=== PATIENT | female | born 1955 | race Asian ===

== ENCOUNTER 2024-07-01 05:25 | Emergency (ER) | payer MEDICARE, SELFPAY ==
[2024-07-01 05:31] VITALS: BP 165/102
[2024-07-01 06:48] LABS: Blood Urea Nitrogen 12 mg/dl (7-17); Calcium 9.9 mg/dl (8.4-10.2); Carbon Dioxide 20 mmol/L (22-30); Chloride 103 mmol/L (98-107); Glucose 304 mg/dl (70-99); Lipase 132 U/L (23-300); Sodium 135 mmol/L (135-145); eGFR > 60.00
[2024-07-01 07:04] VITALS: BP 163/105
[2024-07-01 07:10] LABS: % Basophils 0.6 % (0-2); % Eosinophils 0.7 % (0-6); % Immature Granulocytes 0.6 % (0-0.5); % Lymphocytes 13.5 % (20.5-51.1); % Monocytes 6.2 % (1.7-9.3); % Neutrophils 78.4 % (42.2-75.2); Absolute Basophils 0.1 10^3/uL (0-0.2); Absolute Eosinophils 0.1 10^3/uL (0-0.7); Absolute Immature Granulocytes 0.1 10^3/uL (0-0.05); Absolute Lymphocytes 1.7 10^3/uL (1.2-3.4); Absolute Monocytes 0.8 10^3/uL (0.1-0.6); Absolute Neutrophils 9.8 10^3/uL (1.4-6.5); Hemoglobin 11.3 g/dL (12.0-16.0); Mean Corp Hgb Conc. 33.2 g/dL (33.0-37.0); Mean Corpuscular Hgb 30.4 pg (27.0-31.0); Mean Corpuscular Volume 91.4 fL (81.0-99.0); Mean Platelet Volume 10.7 fL (7.4-10.4); Nucleated Red Blood Cells % 0 %; Platelet Count 301 10^3/uL (130-400); Red Blood Cell Count 3.72 10^6/uL (4.20-5.40); White Blood Cell Count 12.5 10^3/uL (4.8-10.8)
--- NOTE | 2024-07-01 07:20 | ED.GENMED ---
History of Present Illness
General
Chief Complaint: Abdominal Symptoms
Source: patient
Time Seen by Provider: 07/01/24 07:09
History of Present Illness
History of Present Illness:
68-year-old female with past medical history of hypertension, hyperlipidemia, lgi-pdbzrai-zjnjfkqoj diabetes, previous cerebral aneurysm presenting to the emergency department for 2 months of generalized abdominal discomfort, gradually worsening
during that time, more recently associated with nausea and vomiting, last night pain got worse and was associated with 1 episode of loose stool. Patient states that the diarrhea/loose stool has since resolved but she still notes generalized
abdominal pain. Patient was scheduled to undergo outpatient CT scan that was ordered by her primary care provider but states the pain felt too great for her to wait for that CAT scan today. Patient does note she recently traveled to [facility] over the
last 2 weeks and upon returning home felt the symptoms got worse. Symptoms seem to be aggravated by eating or drinking. She has taken some antacid medications intermittently with some relief of the pain. Currently the pain is described to be a
deep burning sensation within her abdomen. Denies any urinary symptoms. Patient states no known sick contacts or recent antibiotics.
Past History
Past History
ED Past Medical History: HTN, Hypercholesterolemia, NIDDM and Hypothyroidism
ED Past Surgical History: None
Social History
Tobacco: Non-smoker
Alcohol: None
Drug: None
Personal:
Living: with family
Review of Systems
Review of Systems
All Other Systems: ROS reviewed and negative except as documented in HPI and ROS
Phy Exam
Physical Exam
Physical Exam:
GENERAL: Alert , in no apparent distress
EYE: clear conjunctiva b/l
HEAD: NCAT
ENT: mmm.
CARDIAC: Regular rate and rhythm .
LUNGS: Clear breath sounds bilaterally, no acute respiratory distress, no wheezes/rales/rhonchi
ABDOMEN: Soft, without focal tenderness, no r/g, no cvat, negative Begum sign, no tenderness at McBurney's point
NEUROLOGICAL: Alert and oriented
SKIN: Warm and dry, skin intact.
MUSCULOSKELETAL: well perfused.
PSYCH: Normal and appropriate interaction.
Scores
Heart Failure Risk
Heart Failure Risk Score: Not Applicable
Heart Score for Chest Pain Patients
STEMI patient?: Not applicable
Withdrawal Assessment of Alcohol
Withdrawal Assessment Completed?: Not applicable
Course
Orders/Labs/Results
Orders:
Orders
07/01/24 06:08
IV Insert/Care/Rem.- Treatment PRN
07/01/24 06:10
Basic Metabolic Panel Urgent
Lipase Urgent
07/01/24 07:05
Complete Blood Count/With Diff Urgent
Comprehensive Metabolic Panel Urgent
07/01/24 07:19
CT Abd/pelvis W Iv Cont Urgent
Comment:
Reason For Exam: generalized abd pain, worse with eating
Famotidine [Pepcid] 20 mg IV NOW STA
Mag Hydrox/Al Hydrox/Simeth [Maalox] 30 ml Phenobarb/Hyoscy/Atropine/Scop [] 10 ml Viscous Lidocaine 2% [Xylocaine Viscous Cup] 10 ml PO NOW
07/01/24 07:29
Mag Hydrox/Al Hydrox/Simeth [Maalox] 30 ml .ROUTE .STK-MED ONE
Phenobarb/Hyoscy/Atropine/Scop [] 10 ml .ROUTE .STK-MED ONE
Viscous Lidocaine 2% [Xylocaine Viscous Cup] 15 ml .ROUTE .STK-MED ONE
Abnormal Lab Results
07/01/24 07/01/24
06:10 07:05
WBC 12.5 H 10^3/uL
(4.8-10.8)
RBC 3.72 L 10^6/uL
(4.20-5.40)
Hgb 11.3 L g/dL
(12.0-16.0)
Hct 34.0 L %
(37.0-47.0)
MPV 10.7 H fL
(7.4-10.4)
Abs Immat Gran (auto) 0.1 H 10^3/uL
(0-0.05)
Absolute Neuts (auto) 9.8 H 10^3/uL
(1.4-6.5)
Absolute Monos (auto) 0.8 H 10^3/uL
(0.1-0.6)
Immature Gran % 0.6 H %
(0-0.5)
Neutrophils % 78.4 H %
(42.2-75.2)
Lymphocytes % 13.5 L %
(20.5-51.1)
Carbon Dioxide 20 L mmol/L
(22-30)
Creatinine 0.5 L mg/dL 0.5 L mg/dL
(0.6-1.0) (0.6-1.0)
Glucose 304 H mg/dl 293 H mg/dl
(70-99) (70-99)
Alkaline Phosphatase 128 H U/L
(38-126)
07/01/24 07:05
07/01/24 07:05
Vital Signs
Initial and Last Documented VS:
Initial Vital Signs
Temp Pulse Resp BP Pulse Ox
98.3 F 98 26 165/102 97
07/01/24 05:31 07/01/24 05:31 07/01/24 05:31 07/01/24 05:31 07/01/24 05:31
Last Documented Vital Signs
Temp Pulse Resp BP Pulse Ox
98.3 F 83 16 160/90 97
07/01/24 05:31 07/01/24 09:55 07/01/24 09:55 07/01/24 09:55 07/01/24 09:55
MDM/Problems Addressed
Differential Diagnosis Includes:
GERD, gastritis, colitis, enteritis, diverticulitis, less concern for an acute surgical abdomen such as appendicitis or cholecystitis however given patient's symptoms do seem to be worse with eating or drinking biliary colic is still being
considered on differential
MDM/Problems Addressed:
68-year-old female presenting to the ER for evaluation of abdominal pain that has been ongoing for at least 2 months, more recently patient has had GI upset with nausea vomiting and last night had some diarrhea. Presently patient states pain is
only symptom that is bothering her. She was scheduled for an outpatient CT scan today. Will obtain labs and CT scan here. Will attempt symptomatic relief with Pepcid and GI cocktail. Disposition pending.
Chronic conditions affecting care: DM
*Radiology
Radiology exam reviewed: radiology read reviewed
*Pulse Oximetry
Patient hypoxic: no
*Critical Care Note
Total Time (30-74mins, 75-104mins- exclusive of procedures): Not Applicable
Comment
Comment:
On reevaluation prior to CT scan patient did note she had improved pain following medications given. CT currently pending
Patient Management
Discussion with other providers: PCP
Escalation/DeEscalation of care consider admission/obs:
Patient CT scan concerning for pancreatic body mass. Radiology recommending outpatient MRI for further evaluation. There is also circumferential wall thickening of the ileum. Infectious versus inflammatory response. I favor inflammatory given
presenting nature of symptoms. Given the significant findings for the pancreatic body mass I contacted patient's primary care provider and reviewed these findings with them. Primary care was able to order the MRI and advised the patient to contact
their office and they will help get them the appointment for the MRI moving forward. Patient was provided with a printout of the CT report. Information for GI was provided to follow-up with. Patient is otherwise stable for discharge home.
ED Attending Note
-
Portions of this chart may have been created with voice recognition software.� Occasional wrong word or��sound alike� substitutions may have occurred due to the inherent limitations of voice recognition software.
Discharge Plan
Departure
Patient Disposition: Home (Routine Discharge)
Date of Disposition: 07/01/24
Time of Disposition: 09:44
Patient with high blood pressure during this ER visit?: Yes
Discharge Problem:
Mass of pancreas, Hyperglycemia
Instructions: Nausea and vomiting in adults - ED discharge instructions
Prescriptions:
New
ondansetron 4 mg tablet,disintegrating
4 mg PO TIDPRN PRN (Reason: nausea/vomiting) Qty: 10 0RF
famotidine [Pepcid] 20 mg tablet
20 mg PO BID Qty: 10 0RF
No Action
atorvastatin 10 MG tablet
10 mg PO QPM
levothyroxine 100 MCG tablet
100 mcg PO DAILY AT 0700
metformin 500 mg Tablet
500 mg PO DAILY
calcium carbonate [Calcium 500] 500 mg calcium (1,250 mg) Tablet
500 mg PO DAILY
cholecalciferol (vitamin D3) [Vitamin D3] 25 mcg (1,000 unit) Tablet,Chewable
25 mcg PO DAILY
docusate sodium [Stool Softener] 100 mg Capsule
100 mg PO BID
Referrals:
Bettina Aleman CRNP [Family Provider] -
Tee Zuniga MD [Active] - (GI - Call for appointment)
Interventions
Interventions:
*Risk Screen - Suicide Last Done: 07/01/24 05:26
*General Assessment Last Done: 07/01/24 05:44
*Neglect/Abuse Screening Last Done: 07/01/24 05:26
*ED- Fall Risk Assessment Last Done: 07/01/24 05:44
*ED COVID-19 Vaccine History Last Done: 07/01/24 05:44
*Nursing Disposition Last Done: 07/01/24 09:55
GX-Iyklyk-Aczdnmfdpw Assessment Last Done: 07/01/24 05:44
Discharge Date and Time
Discharge Date/Time: 07/01/24 10:06
Print Language: MAORI
[2024-07-01 07:24] LABS: ALT (SGPT) 20 U/L (0-35); AST (SGOT) 22 U/L (14-36); Alkaline Phosphatase 128 U/L (38-126); Blood Urea Nitrogen 13 mg/dl (7-17); Carbon Dioxide 23 mmol/L (22-30); Chloride 104 mmol/L (98-107); Glucose 293 mg/dl (70-99); Potassium 4.9 mmol/L (3.5-5.1); Sodium 136 mmol/L (135-145); Total Bilirubin 0.7 mg/dl (0.2-1.3); Total Protein 8.2 g/dl (6.3-8.2); eGFR > 60.00
[2024-07-01] MEDS: MAALOX 50 PO (07:30)
[2024-07-01] MEDS: PEPCID 20 MG IV (07:30)
[2024-07-01 08:00] VITALS: BP 165/97
[2024-07-01 09:55] VITALS: BP 160/90
== END 2024-07-01 10:06 | disposition home or self-care (01) ==
LOC: EMR 05:25
PROVIDERS: Emergency Medicine; EMERGENCY PHYSICIAN Emergency Medicine; FAMILY PHYSICIAN Nurse Practitioner
DX: K86.9 Disease of pancreas, unspecified (principal); E11.65 Type 2 diabetes mellitus with hyperglycemia; I10 Essential (primary) hypertension; E78.00 Pure hypercholesterolemia, unspecified
CPT/HCPCS: 99285; 96374; 74177; 80048; 80053; 83690; 85025; Q9967

== ENCOUNTER 2024-10-14 11:52 | Emergency (ER) | payer MEDICARE, SELFPAY ==
[2024-10-14 11:56] VITALS: BP 135/88
[2024-10-14 11:57] LABS: Glucose - Point of Care 561 mg/dl (70-99)
[2024-10-14 12:15] LABS: % Basophils 0.6 % (0-2); % Eosinophils 1.1 % (0-6); % Immature Granulocytes 0.5 % (0-0.5); % Lymphocytes 19.7 % (20.5-51.1); % Monocytes 7.1 % (1.7-9.3); Absolute Basophils 0.1 10^3/uL (0-0.2); Absolute Eosinophils 0.1 10^3/uL (0-0.7); Absolute Lymphocytes 1.6 10^3/uL (1.2-3.4); Absolute Monocytes 0.6 10^3/uL (0.1-0.6); Absolute Neutrophils 5.7 10^3/uL (1.4-6.5); Hematocrit 34.3 % (37.0-47.0); Hemoglobin 11.2 g/dL (12.0-16.0); Mean Corp Hgb Conc. 32.7 g/dL (33.0-37.0); Mean Corpuscular Hgb 29.9 pg (27.0-31.0); Mean Corpuscular Volume 91.7 fL (81.0-99.0); Mean Platelet Volume 11.4 fL (7.4-10.4); Nucleated Red Blood Cells % 0 %; Platelet Count 235 10^3/uL (130-400); Red Blood Cell Count 3.74 10^6/uL (4.20-5.40); Red Cell Dist. Width 12.3 % (11.5-14.5)
[2024-10-14] MEDS: NSS 1000 IV ×2 (12:57→14:27)
[2024-10-14 13:11] LABS: Venous Blood Gas B.E. -1.3 mmol/L (-4 to +4); Venous Blood Gas HCO3 25.6 mmol/L (22-27); Venous Blood Gas O2 Sat % 88.9 %; Venous Blood Gas pCO2 52 mmHg (35-48); Venous Blood Gas pO2 56 mmHg (30-50)
[2024-10-14 13:13] LABS: ALT (SGPT) 16 U/L (0-35); AST (SGOT) 18 U/L (14-36); Albumin 4.7 g/dl (3.5-5.0); Alkaline Phosphatase 127 U/L (38-126); Blood Urea Nitrogen 12 mg/dl (7-17); Carbon Dioxide 24 mmol/L (22-30); Total Bilirubin 0.7 mg/dl (0.2-1.3); Total Protein 8.6 g/dl (6.3-8.2); eGFR > 60.00
[2024-10-14 13:14] VITALS: BP 117/98
[2024-10-14 13:16] LABS: Chloride 99 mmol/L (98-107); Glucose 632 mg/dl (70-99); Sodium 133 mmol/L (135-145)
--- NOTE | 2024-10-14 13:20 | ED.GENMED ---
History of Present Illness
General
Chief Complaint: Blood Sugar Problem
Source: patient and family
Exam Limitations: none
Time Seen by Provider: 10/14/24 12:31
Nursing documentation reviewed up to this point in time: agreed with
History of Present Illness
History of Present Illness:
68 yh/o F with h/o HTN, HLD, NIDDM
pancreatic CA with neuroendocrine mets
on lanreotide injections( had 2 previously, q month)
managed by kelly dunn
here with elevated BG at home
pt has noticed that she lost about 10 pounds the past 1-2 mo which is unusual; she feels she is eating normally
she doesn't usually check her BGs
was told that her medication lanreotide can cause hyperglycemia
pt says today she checked it and it was 53; she called her son who rechecked it for her an hour later and it read 'hi'
pt has not had polydipsia or polyuria, abd pain, vomiting, diarrhea, cold sypmtoms, fever, chest pain
she says she gets full easily but that has bee an ongoing symptom since her ca diagnosis 3 mo ago
Past History
Past History
ED Past Medical History: HTN, Hypercholesterolemia, NIDDM and Hypothyroidism
ED Past Surgical History: None
Social History
Tobacco: Non-smoker
Alcohol: None
Drug: None
Personal:
Living: with family
Review of Systems
Review of Systems
Allergies reviewed?: Yes
All Other Systems: Not applicable
Phy Exam
Physical Exam
Physical Exam:
GENERAL: Alert , in no apparent distress
EYE: pupils equal and reactive
NECK: Supple
ENT: o/p clr, mmm.
CARDIAC: Regular rate and rhythm .
LUNGS: Clear breath sounds bilaterally, no acute respiratory distress, no wheezes/rales/rhonchi
ABDOMEN: Soft, without focal tenderness, no r/g, no cvat, normal bowel sounds
NEUROLOGICAL: Alert and oriented, no focal neuro deficits
SKIN: Warm and dry, skin intact.
MUSCULOSKELETAL: No edema, well perfused. neg noe's sign
PSYCH: Normal and appropriate interaction.
Course
Orders/Labs/Results
Orders:
Orders
10/14/24 12:03
Complete Blood Count/With Diff Urgent
Comprehensive Metabolic Panel Urgent
10/14/24 12:31
0.9% Sodium Chloride 1000 ml [Nss] 1,000 ml IV BOLUS
10/14/24 12:56
BHB [B-Hydroxybutyrate] Urgent
Urinalysis Reflex To Culture Urgent
Date Specimen was Collected: 10/14/24
Time Specimen was Collected: 12:46
Venous Blood Gas Urgent
%Oxygen/Room Air: 21
10/14/24 13:17
0.9% Sodium Chloride 1000 ml [Nss] 1,000 ml IV BOLUS
Abnormal Lab Results
10/14/24 10/14/24 10/14/24
11:55 12:03 12:56
RBC 3.74 L 10^6/uL
(4.20-5.40)
Hgb 11.2 L g/dL
(12.0-16.0)
Hct 34.3 L %
(37.0-47.0)
MCHC 32.7 L g/dL
(33.0-37.0)
MPV 11.4 H fL
(7.4-10.4)
Lymphocytes % 19.7 L %
(20.5-51.1)
VBG pH 7.30 L
(7.32-7.43)
VBG pCO2 52 H mmHg
(35-48)
VBG pO2 56 H mmHg
(30-50)
Sodium 133 L mmol/L
(135-145)
Glucose 632 H* mg/dl
(70-99)
Alkaline Phosphatase 127 H U/L
(38-126)
Total Protein 8.6 H g/dl
(6.3-8.2)
Urine Glucose 4+ A
(Negative)
POC Glucose 561 H* mg/dl
(70-99)
10/14/24 12:03
10/14/24 12:03
Vital Signs
Initial and Last Documented VS:
Initial Vital Signs
Temp Pulse Resp BP Pulse Ox
36.7 C 81 16 135/88 98
10/14/24 11:56 10/14/24 11:56 10/14/24 11:56 10/14/24 11:56 10/14/24 11:56
Last Documented Vital Signs
Temp Pulse Resp BP Pulse Ox
36.7 C 81 16 135/88 98
10/14/24 11:56 10/14/24 11:56 10/14/24 11:56 10/14/24 11:56 10/14/24 13:21
*Pulse Oximetry
SaO2: 98
Oxygen Mode of Delivery: Room air
ED Attending Note
-
Portions of this chart may have been created with voice recognition software.� Occasional wrong word or��sound alike� substitutions may have occurred due to the inherent limitations of voice recognition software.
Discharge Plan
Departure
Prescriptions:
No Action
atorvastatin 10 MG tablet
10 mg PO QPM
levothyroxine 100 MCG tablet
100 mcg PO DAILY AT 0700
metformin 500 mg Tablet
500 mg PO DAILY
calcium carbonate [Calcium 500] 500 mg calcium (1,250 mg) Tablet
500 mg PO DAILY
cholecalciferol (vitamin D3) [Vitamin D3] 25 mcg (1,000 unit) Tablet,Chewable
25 mcg PO DAILY
docusate sodium [Stool Softener] 100 mg Capsule
100 mg PO BID
ondansetron 4 mg tablet,disintegrating
4 mg PO TIDPRN PRN (Reason: nausea/vomiting) Qty: 10 0RF
famotidine [Pepcid] 20 mg tablet
20 mg PO BID Qty: 10 0RF
Interventions
Interventions:
*Risk Screen - Suicide Last Done: 10/14/24 11:56
*General Assessment Last Done: 10/14/24 13:06
*Neglect/Abuse Screening Last Done: 10/14/24 11:56
ED- Neurological Assessment Last Done: 10/14/24 13:07
Discharge Date and Time
Print Language: KAZAKH
[2024-10-14 13:30] LABS: Urine Albumin Negative (Neg - Trace); Urine Bilirubin Negative (Negative); Urine Character Clear (Clear); Urine Color Yellow; Urine Glucose 4+ (Negative); Urine Ketone Negative (Negative); Urine Leukocyte Negative (Negative); Urine Nitrite Negative (Negative); Urine Occult Blood Negative (Negative); Urine Urobilinogen Negative (Neg - 1+)
[2024-10-14 13:31] LABS: Potassium 4.8 mmol/L (3.5-5.1)
[2024-10-14 13:45] LABS: B-Hydroxybutyrate 0.22 mmol/L (0.02-0.27)
[2024-10-14 14:00] VITALS: BP 139/91
[2024-10-14 15:43] LABS: Glucose - Point of Care 379 mg/dl (70-99)
[2024-10-14 16:00] VITALS: BP 155/87
[2024-10-14] MEDS: NOVOLIN R 2 UNITS SC (16:27)
== END 2024-10-14 17:41 | disposition home or self-care (01) ==
LOC: EMR 11:52
PROVIDERS: Physician Assistant; EMERGENCY PHYSICIAN Emergency Medicine; FAMILY PHYSICIAN Nurse Practitioner
DX: E11.65 Type 2 diabetes mellitus with hyperglycemia (principal); I10 Essential (primary) hypertension; E78.00 Pure hypercholesterolemia, unspecified; C25.9 Malignant neoplasm of pancreas, unspecified; C7B.8 Other secondary neuroendocrine tumors
CPT/HCPCS: 99284; 96360; 96361; 96372; 80053; 81003; 82010; 82805; 82962; 85025

== ENCOUNTER 2025-01-05 17:27 | Emergency (ER) | payer MEDICARE, SELFPAY ==
[2025-01-05 17:31] VITALS: BP 159/99
[2025-01-05] MEDS: TYLENOL 650 MG PO (19:03)
[2025-01-05 19:11] VITALS: BMI 29.3
[2025-01-05] MEDS: NSS 1000 IV (19:28)
--- NOTE | 2025-01-05 19:30 | ED.GENMED ---
History of Present Illness
<Tess Gaspar PA-C - Last Filed: 01/06/25 13:15>
General
Chief Complaint: Headache
Source: patient
Exam Limitations: none
Time Seen by Provider: 01/05/25 18:32
Nursing documentation reviewed up to this point in time: agreed with
History of Present Illness
History of Present Illness:
Patient is a 69-year-old female with history of hypertension, insulin-dependent diabetes, metastatic pancreatic cancer who presents to the emergency department for evaluation of right-sided headache. Patient states she has had an intermittent
headache on the right side for the past 3-4 weeks. Today�she was woken at 3 AM with similar headache however has been unable to manage symptoms well at home. She does feel that her vision has been somewhat blurry over the past few weeks to months.
No associated fever, chills, vomiting, diplopia. No dizziness or ataxia. No difficulties with speech or swallowing.
Patient has Tylenol at home with minimal improvement. She is not on any oral anticoagulation. No past history of migraines.
Patient does live at home with her son who is present at bedside and states that she has been acting at her baseline mental status.
Past History
<Tess Gaspar PA-C - Last Filed: 01/06/25 13:15>
Past History
ED Past Medical History: HTN, Hypercholesterolemia, NIDDM and Hypothyroidism
ED Past Surgical History: None
Social History
Tobacco: Non-smoker
Alcohol: None
Drug: None
Personal:
Living: with family
Review of Systems
<Tess Gaspar PA-C - Last Filed: 01/06/25 13:15>
Review of Systems
Allergies reviewed?: Yes
All Other Systems: ROS reviewed and negative except as documented in HPI and ROS
Phy Exam
<Tess Gaspar PA-C - Last Filed: 01/06/25 13:15>
Physical Exam
Physical Exam:
Vitals: Hypertensive, otherwise vital signs stable. Afebrile
General: Patient is in mild distress. Nontoxic
Skin: Warm and dry, no rashes or lesions
Head: Normocephalic, atraumatic. No tenderness to temporal arteries bilaterally.
Eyes: Sclera nonicteric. Pupils equal round and reactive to light bilaterally. EOMs intact. No nystagmus.
Throat: Protecting airway
Neck: Normal ROM, no cervical spine tenderness, no meningismus
Cardiac: Regular rate and rhythm, no murmurs.
Pulm: Normal respiratory effort, no wheezes, rales, rhonchi heard on exam
Abdomen: No abdominal tenderness.
Extremities: No evidence of cyanosis or edema. Strength 5/5 in bilateral upper and lower extremities.
Neuro: AAOx3. CN II-XII grossly intact. No facial droop or asymmetry. Sensation intact. Normal finger to nose.No focal neurologic deficits.
Psychiatric: Normal affect.
Course
<Tess Gaspar PA-C - Last Filed: 01/06/25 13:15>
Orders/Labs/Results
Orders:
Orders
01/05/25 18:46
CT Head W/o Iv Contrast Urgent
Comment:
Reason For Exam: Headache, hx metastatic CA
0.9% Sodium Chloride 1000 ml [Nss] 1,000 ml IV BOLUS
Acetaminophen [Tylenol] 650 mg PO NOW STA
01/05/25 19:03
COVID-19 Antigen Urgent
Source: Nasal Swab
CRP [C-Reactive Protein] Urgent
Complete Blood Count/With Diff Urgent
Comprehensive Metabolic Panel Urgent
ESR [Erythrocyte Sed Rate] Urgent
01/05/25 20:32
Ketorolac [Toradol] 15 mg IV NOW STA
01/05/25 21:12
Ketorolac [Toradol] 15 mg IM NOW STA
01/05/25 21:26
Ketorolac [Toradol] 15 mg IV NOW STA
01/05/25 22:01
Diphenhydramine [Benadryl] 25 mg IV NOW STA
Metoclopramide [Reglan] 10 mg IV NOW STA
01/05/25 22:58
Diphenhydramine [Benadryl] 25 mg IV NOW STA
Abnormal Lab Results
01/05/25
19:03
RBC 3.42 L 10^6/uL
(4.20-5.40)
Hgb 10.3 L g/dL
(12.0-16.0)
Hct 32.4 L %
(37.0-47.0)
MCHC 31.8 L g/dL
(33.0-37.0)
MPV 11.2 H fL
(7.4-10.4)
ESR 58 H mm/hour
(0-20)
Creatinine 0.5 L mg/dL
(0.6-1.0)
Glucose 124 H mg/dl
(70-99)
C-Reactive Protein 17.50 H mg/L
(0.0-10.00)
Total Protein 8.7 H g/dl
(6.3-8.2)
01/05/25 19:03
01/05/25 19:03
Vital Signs
Initial and Last Documented VS:
Initial Vital Signs
Temp Pulse Resp BP Pulse Ox
98.3 F 71 16 159/99 99
01/05/25 17:31 01/05/25 17:31 01/05/25 17:31 01/05/25 17:31 01/05/25 17:31
Last Documented Vital Signs
Temp Pulse Resp BP Pulse Ox
98.3 F 67 18 154/89 99
01/05/25 17:31 01/05/25 23:27 01/05/25 23:27 01/05/25 23:27 01/05/25 23:27
<Joan Toscano, DO - Last Filed: 01/05/25 23:01>
Orders/Labs/Results
Orders:
Orders
01/05/25 18:46
CT Head W/o Iv Contrast Urgent
Comment:
Reason For Exam: Headache, hx metastatic CA
0.9% Sodium Chloride 1000 ml [Nss] 1,000 ml IV BOLUS
Acetaminophen [Tylenol] 650 mg PO NOW STA
01/05/25 19:03
COVID-19 Antigen Urgent
Source: Nasal Swab
CRP [C-Reactive Protein] Urgent
Complete Blood Count/With Diff Urgent
Comprehensive Metabolic Panel Urgent
ESR [Erythrocyte Sed Rate] Urgent
01/05/25 20:32
Ketorolac [Toradol] 15 mg IV NOW STA
01/05/25 21:12
Ketorolac [Toradol] 15 mg IM NOW STA
01/05/25 21:26
Ketorolac [Toradol] 15 mg IV NOW STA
01/05/25 22:01
Diphenhydramine [Benadryl] 25 mg IV NOW STA
Metoclopramide [Reglan] 10 mg IV NOW STA
01/05/25 22:58
Diphenhydramine [Benadryl] 25 mg IV NOW STA
Abnormal Lab Results
01/05/25
19:03
RBC 3.42 L 10^6/uL
(4.20-5.40)
Hgb 10.3 L g/dL
(12.0-16.0)
Hct 32.4 L %
(37.0-47.0)
MCHC 31.8 L g/dL
(33.0-37.0)
MPV 11.2 H fL
(7.4-10.4)
ESR 58 H mm/hour
(0-20)
Creatinine 0.5 L mg/dL
(0.6-1.0)
Glucose 124 H mg/dl
(70-99)
C-Reactive Protein 17.50 H mg/L
(0.0-10.00)
Total Protein 8.7 H g/dl
(6.3-8.2)
01/05/25 19:03
01/05/25 19:03
Vital Signs
Initial and Last Documented VS:
Initial Vital Signs
Temp Pulse Resp BP Pulse Ox
98.3 F 71 16 159/99 99
01/05/25 17:31 01/05/25 17:31 01/05/25 17:31 01/05/25 17:31 01/05/25 17:31
Last Documented Vital Signs
Temp Pulse Resp BP Pulse Ox
98.3 F 67 18 154/89 99
01/05/25 17:31 01/05/25 23:27 01/05/25 23:27 01/05/25 23:27 01/05/25 23:27
<Tess Gaspar PA-C - Last Filed: 01/06/25 13:15>
MDM/Problems Addressed
Differential Diagnosis Includes:
Not limited to: acute dehydration, viral illness, migraine headache, tension headache, metastatic disease, giant cell arteritis, etc
MDM/Problems Addressed:
69 year-old female presenting with a few weeks of intermittent right sided headache not responding to OTC treatments this morning. She has reports of mild blurred vision, however unclear if this has been present prior to onset of headache. No other
neurologic symptoms including AMS, viral symptoms. No history of recent trauma. 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
She and her son say that she was worked up for a intracerebral aneurysm w/ neurology at [facility] which was negative.
Vitals and physical exam as above.
Patient in mild distress due to headache however nontoxic appearing. No evidence of head or neck trauma without any focal neurological deficits. She does not have any focal tenderness over temporal arteries or symptoms of jaw claudication. She is
moving all extremities and has fluid speech. No sensory deficits.
Differential broad as above.
ED plan: will check labs, viral studies, inflammatory markers, given age and associated visual complaints. Will check CT head for further evaluation. Will give dose of Tylenol prior to CT scan.
Update: CT scan without any acute findings. Lab work relatively unremarkable. However � inflammatory markers, including ESR and CRP were both somewhat elevated however, lengthy discussion w/ patient and son who states this is chronic for patient and
her inflammatory markers are always elevated.
On reassessment � patient has had very minimal improvement following dose of Toradol after CT scan. Will give Benadryl/Reglan and reassess.
Update: Fortunately � patients headache has dissipated completely after Benadryl/reglan however, she did have significant level of agitation with Reglan and was given an additional dose of Benadryl with improvement.
Work up in ED unremarkable other than elevation in inflammatory markers, which was discussed. Unclear etiology of patients headache today however she did have response to migraine cocktail. Do not suspect infectious process. Do not suspect vascular
emergency or giant cell arteritis. Given improvement in symptoms without any neuro deficits - feel patient is stable for discharge home however given known history of malignancy � recommended f/u with oncology/neurology for possible MRI. Discussed
with patient/son who are comfortable with plan. Patient seen with attending physician.
Chronic conditions affecting care:
Pancreatic CA
Acute Exacerbation and/or Progression of Chronic Illness:
N/A
<Tess Gaspar PA-C - Last Filed: 01/06/25 13:15>
*Radiology
Radiology exam reviewed: radiology read reviewed
*Pulse Oximetry
SaO2: 99
Oxygen Mode of Delivery: Room air
Patient hypoxic: no
*EKG
Interpreted by ED Provider?: NA
*Construction Engineering Manager Interpretation
Rate: Construction Engineering Manager- N/A
*Critical Care Note
Total Time (30-74mins, 75-104mins- exclusive of procedures): Not Applicable
ED Attending Note
<Tess Gaspar PA-C - Last Filed: 01/06/25 13:15>
-
Portions of this chart may have been created with voice recognition software.� Occasional wrong word or��sound alike� substitutions may have occurred due to the inherent limitations of voice recognition software.
<Joan Toscano DO - Last Filed: 01/05/25 23:01>
ED Attending Note
Patient seen and examined by attending physician: Yes
I performed the substantive portion of visit, reviewed & personally made and approve the management plan that is documented in note by myself or ALEYDA.: Yes
I performed a history and physical exam of patient and discussed management with resident, I reviewed resident's note and agree with documented findings and plan of care.: Yes
ED Attending Note:
69-year-old female brought to the ER by her son for evaluation of right-sided headache which has been happening intermittently over the last 3 weeks. Patient denies any specific change in vision associated with the headaches, she does however
sometimes occasionally experience blurred vision. No fevers or chills. She is currently on hormonal treatment for a neuroendocrine pancreatic tumor-she has received several infusions of that medication, most recently in the beginning of December.
No fevers. No weakness to her arms or legs, she sometimes has paresthesias to her feet. Vital signs reviewed, patient is awake, alert, appears restless (had just received Reglan prior to my assessment), no photophobia, no dysdiadochokinesia, no
ataxia, no pronator drift, no midline pain on palpation of cervical spine, moving neck easily in all directions without apparent limitation, GCS is 15. I reviewed all test results with patient and son present at bedside. I discussed with them
nonspecific elevation of inflammatory markers, son is quick to report that her sed rate is always in the 50s, this was not surprising to him. I discussed with him possible etiology of symptoms related to temporal arteritis versus muscle
spasm/greater occipital neuritis, a nonspecific headache. I discussed with him very reassuring CT of the head. I discussed with them likely mild akathisia from Reglan administration-Will give additional dose of Benadryl. Of note patient had
complete symptomatic relief of her headache throughout treatment in the emergency department. We discussed plan for discharge home and close outpatient follow-up with primary care physician. Patient has seen neurology in the past as she had an
abnormal MRI previously that had been initially identified as an aneurysm but was later identified as a normal venous formation. Patient and son agree with plan to follow-up with PCP and will contact neurology as needed. They had no additional
questions at the current time.
Discharge Plan
Departure
Patient Disposition: Home (Routine Discharge)
Date of Disposition: 01/05/25
Time of Disposition: 23:16
Patient with high blood pressure during this ER visit?: Yes
Condition: Good
Covid-19: Negative COVID-19
Discharge Problem:
Headache
Instructions: Headache, Adult (DC), BLOOD PRESSURE
Prescriptions:
No Action
atorvastatin 10 MG tablet
10 mg PO QPM
levothyroxine 100 MCG tablet
100 mcg PO SUMOTUWETHFR
metformin 500 mg Tablet
500 mg PO BID
cyanocobalamin (vitamin B-12) 1,000 mcg Tablet
1,000 mcg PO DAILY
losartan 25 mg Tablet
25 mg PO DAILY
famotidine [Pepcid] 20 mg tablet
20 mg PO DAILYPRN PRN (Reason: gerd)
levothyroxine [Synthroid] 50 mcg Tablet
50 mcg PO SA
Referrals:
Kimberlyn Hunt MD [Non-Admitting Privileges, Neurology]
UNKNOWN - PT DOES,NOT KNOW [Family Provider]
Activity Restrictions/Additional Instructions:
RETURN TO THE EMERGENCY DEPARTMENT SEVERE HEADACHE, NECK PAIN, FEVER OR CHILLS, CHANGES IN VISION, DIZZINESS, DIFFICULTIES WITH WALKING OR SPEECH, ANY CHANGES IN MENTAL STATUS, WORSENING IN CURRENT SYMPTOMS, OR ANY OTHER CONCERNS
- As discussed�your inflammatory markers were elevated in the emergency department. Your CT of your head showed no acute findings.
-We are unsure the exact etiology of your headache today. Please continue to follow-up with your primary care and oncologist for further management. I have provided the name for a neurologist above as well.
- Please stay well-hydrated. Take Tylenol and/or Motrin as needed for pain.
Monitor your symptoms closely and return to the emergency department with any acute worsening/new symptoms or any other concerns
Interventions
Interventions:
*Risk Screen - Suicide Last Done: 01/05/25 17:32
*General Assessment Last Done: 01/05/25 19:11
*Neglect/Abuse Screening Last Done: 01/05/25 17:32
*ED- Fall Risk Assessment Last Done: 01/05/25 19:11
*ED COVID-19 Vaccine History Last Done: 01/05/25 19:11
*Nursing Disposition Last Done: 01/05/25 23:28
ED- Neurological Assessment Last Done: 01/05/25 20:47
Discharge Date and Time
Discharge Date/Time: 01/05/25 23:28
Print Language: SOUTH SUDANESE
[2025-01-05 19:32] LABS: Hematocrit 32.4 % (37.0-47.0); Hemoglobin 10.3 g/dL (12.0-16.0); Mean Corp Hgb Conc. 31.8 g/dL (33.0-37.0); Mean Corpuscular Volume 94.7 fL (81.0-99.0); Nucleated Red Blood Cells % 0 %; Platelet Count 239 10^3/uL (130-400); Red Cell Dist. Width 12.6 % (11.5-14.5)
[2025-01-05 19:35] LABS: COVID-19 Antigen Negative (Negative)
[2025-01-05 19:47] LABS: ALT (SGPT) 15 U/L (0-35); AST (SGOT) 22 U/L (14-36); Albumin 4.6 g/dl (3.5-5.0); Alkaline Phosphatase 114 U/L (38-126); Blood Urea Nitrogen 10 mg/dl (7-17); Calcium 10.1 mg/dl (8.4-10.2); Carbon Dioxide 24 mmol/L (22-30); Chloride 104 mmol/L (98-107); Estimated Creatinine Clearance 91 ml/min; Glucose 124 mg/dl (70-99); Potassium 4.6 mmol/L (3.5-5.1); Sodium 136 mmol/L (135-145); Total Protein 8.7 g/dl (6.3-8.2); eGFR > 60.00
[2025-01-05 19:50] LABS: C-Reactive Protein 17.50 mg/L (0.0-10.00)
[2025-01-05] MEDS: TORADOL 15 MG IV (21:26)
[2025-01-05] MEDS: BENADRYL 25 MG IV ×2 (22:06→23:05)
[2025-01-05] MEDS: REGLAN 10 MG IV (22:07)
[2025-01-05 23:27] VITALS: BP 154/89
== END 2025-01-05 23:28 | disposition home or self-care (01) ==
LOC: EMR 17:27
PROVIDERS: Physician Assistant; EMERGENCY PHYSICIAN Emergency Medicine
DX: R51.9 Headache, unspecified (principal); C7A.8 Other malignant neuroendocrine tumors; E11.9 Type 2 diabetes mellitus without complications; I10 Essential (primary) hypertension; E78.00 Pure hypercholesterolemia, unspecified; E03.9 Hypothyroidism, unspecified; Z79.890 Hormone replacement therapy; Z79.84 Long term (current) use of oral hypoglycemic drugs
CPT/HCPCS: 99284; 96374; 96375 ×2; 96376; 96361; 70450; 80053; 85025; 85652; 86140; 87811

== ENCOUNTER 2025-03-24 19:06 | Emergency (ER) | payer MEDICARE, SELFPAY ==
[2025-03-24 19:13] VITALS: BP 166/104
[2025-03-24 19:29] LABS: Hematocrit 32.3 % (37.0-47.0); Hemoglobin 10.0 g/dL (12.0-16.0); Mean Corp Hgb Conc. 31.0 g/dL (33.0-37.0); Mean Corpuscular Volume 95.0 fL (81.0-99.0); Nucleated Red Blood Cells % 0 %; Platelet Count 321 10^3/uL (130-400); Red Cell Dist. Width 11.9 % (11.5-14.5)
[2025-03-24 19:51] LABS: ALT (SGPT) 13 U/L (0-35); AST (SGOT) 46 U/L (14-36); Albumin 4.5 g/dl (3.5-5.0); Alkaline Phosphatase 370 U/L (38-126); Blood Urea Nitrogen 7 mg/dl (7-17); Calcium 9.6 mg/dl (8.4-10.2); Carbon Dioxide 28 mmol/L (22-30); Chloride 102 mmol/L (98-107); Glucose 112 mg/dl (70-99); Potassium 4.4 mmol/L (3.5-5.1); Sodium 136 mmol/L (135-145); Total Protein 8.9 g/dl (6.3-8.2); eGFR > 60.00
[2025-03-24 21:03] VITALS: BP 155/96
--- NOTE | 2025-03-24 21:46 | ED.CVA ---
History of Present Illness
General
Chief Complaint: CVA/TIA Symptoms
Source: patient, records and family
Exam Limitations: none
Time Seen by Provider: 03/24/25 21:32
Nursing documentation reviewed up to this point in time: agreed with except (No history of aneurysm)
Onset of Stroke Symptoms
Onset of symptoms known: No
Time pt last seen normal is known: No
History of Present Illness
History of Present Illness:
69-year-old female with a past medical history of hypertension and hyperlipidemia, diabetes, pancreatic cancer who presents to the emergency room with her son for evaluation of a headache. Patient reports that symptoms started at around 2 AM this
morning and have been constant since that time. She reports a right sided headache that does not radiate. She says that she feels subjectively like she is having some slurred speech or difficulty getting words out although son says that she has
not noticed any change in her speech. She denies feeling slurring of the speech. She denies any change in her vision. She denies any neck pain or stiffness. She denies any focal weakness or numbness in extremities. She does have history of
pancreatic cancer and is on hormonal therapy for this. She does report similar headache in December that resolved after ER treatment. Triage note mentions a history of aneurysm�after discussion with patient and son it sounds like she had initial
imaging where there was a question of aneurysm but after further workup and specialist evaluation they were told that if this was a normal venous formation.
Past History
Past History
ED Past Medical History: HTN, Hypercholesterolemia, NIDDM and Hypothyroidism
ED Past Surgical History: None
Social History
Tobacco: Non-smoker
Alcohol: None
Drug: None
Personal:
Living: with family
Review of Systems
Review of Systems
All Other Systems: ROS reviewed and negative except as documented in HPI and ROS
Constitutional: Denies fever or chills
Respiratory: Denies trouble breathing
Cardiac: Denies chest pain
ABD/GI: Denies abdominal pain, nausea or vomiting
: Denies flank pain
Musculoskeletal: Denies neck pain or back pain
Neurological: Reports headache; Denies dizzy, weakness or numbness
Phy Exam
Physical Exam
Physical Exam:
General: Awake, alert, oriented x3; no acute distress
Head: Normocephalic, atraumatic
Eyes: Conjunctiva normal, EOMI, pupils equal round reactive to light bilateral
Throat: Airway intact, handling secretions
Neck: Trachea midline, supple without meningismus, good free range of motion without pain
Lungs: Clear to auscultation bilaterally, no wheezing, rales, rhonchi
Heart: Regular rate and rhythm, no murmurs, gallops, or rubs appreciated
Abd: Soft, non distended, nontender
Neuro: Cranial nerves intact 2 through 12, speech is fluid without dysarthria or aphasia objectively, motor and sensory intact proximally and distally in the upper and lower extremities, no limb ataxia
Skin: Warm and dry
Extremities: Warm and well-perfused with no edema
Scores
NIH Stroke Score
Level of Consciousness: 0 - Alert
LOC Questions: 0-Answers both correctly
LOC Commands: 0-Performs both correctly
Best Horizontal Gaze: 0-Normal
Visual Munoz: 0=Normal, no visual loss
Facial Palsy: 0=Normal, symmetrical
Motor - Right Arm: 0=No drift 10 seconds
Motor - Left Arm: 0=No drift 10 seconds
Motor - Right Le-No drift 5 seconds
Motor - Left Le-No drift 5 seconds
Limb Ataxia: 0-Absent
Sensation: 0-Normal
Best Language: 0-No aphasia
Dysarthria: 0-Normal
Extinction and Inattention: 0-No abnormality
NIH Total Score:: 0
Course
Orders/Labs/Results
Orders:
Orders
03/24/25 19:[address] [CT Head W/o Iv Contrast] Urgent
Comment:
Reason For Exam: right headache, speech difficulty
03/24/25 19:22
Complete Blood Count/With Diff Urgent
Comprehensive Metabolic Panel Urgent
03/24/25 21:43
Diphenhydramine [Benadryl] 25 mg IV NOW STA
Ketorolac [Toradol] 15 mg IV NOW STA
Metoclopramide [Reglan] 10 mg IV NOW STA
03/24/25 21:44
0.9% Sodium Chloride 500 ml [Nss] 500 ml IV BOLUS
03/24/25 22:08
Electrocardiogram (*1) Urgent
Reason for Study: TIA/Stroke
EKG- Treatment ONCE
Abnormal Lab Results
03/24/25
19:22
RBC 3.40 L 10^6/uL
(4.20-5.40)
Hgb 10.0 L g/dL
(12.0-16.0)
Hct 32.3 L %
(37.0-47.0)
MCHC 31.0 L g/dL
(33.0-37.0)
Abs Immat Gran (auto) 0.1 H 10^3/uL
(0-0.05)
Absolute Neuts (auto) 7.4 H 10^3/uL
(1.4-6.5)
Absolute Monos (auto) 0.8 H 10^3/uL
(0.1-0.6)
Immature Gran % 0.6 H %
(0-0.5)
Lymphocytes % 18.5 L %
(20.5-51.1)
Glucose 112 H mg/dl
(70-99)
AST 46 H U/L
(14-36)
Alkaline Phosphatase 370 H U/L
(38-126)
Total Protein 8.9 H g/dl
(6.3-8.2)
03/24/25 19:22
03/24/25 19:22
Vital Signs
Initial and Last Documented VS:
Initial Vital Signs
Temp Pulse Resp BP Pulse Ox
36.3 C 78 16 166/104 97
03/24/25 19:13 03/24/25 19:13 03/24/25 19:13 03/24/25 19:13 03/24/25 19:13
Last Documented Vital Signs
Temp Pulse Resp BP Pulse Ox
36.3 C 79 22 135/103 94
03/24/25 19:13 03/24/25 23:00 03/24/25 23:00 03/24/25 22:00 03/24/25 22:30
MDM/Problems Addressed
Differential Diagnosis Includes:
Tension headache, migraine headache, brain mass, brain bleed, CVT, temporal arteritis
MDM/Problems Addressed:
69-year-old female with history as noted presents for evaluation of right sided headache similar to an episode in December. Hypertensive but otherwise normal vitals. Physical exam as above. Patient reports some subjective slowed speech but son
denies any objective change in her speech and certainly today on exam she is not dysarthric or aphasia, neuroexam otherwise is reassuring�nothing to suggest that this is an acute CVA. She had lab work in triage including a CBC which shows stable
anemia. Chemistry no clinically significant abnormalities. CT head shows no acute abnormalities. Patient and son report similar episode in December that improved with medications in the ER�wi trial Toradol, Reglan/Benadryl, fluids and
reassess. No meningeal signs or fever to suggest that this is meningitis; triage note erroneously mentions history of aneurysm but on clarification this was an incidental finding that was further evaluated and aneurysm ruled out per patient and
son. Would hold off on lumbar puncture at this point in time. Low suspicion for emergent cause for headache based on full clinical picture at this point.
Clinical reassessment after Toradol, Reglan/Benadryl patient's headache resolved she says she is feeling much better. She remains with reassuring neurologic exam, vital signs essentially normalized at this point low suspicion for emergent pathology
I think she is stable for discharge. I did speak to her and her son at length she feels comfortable with this plan. I did speak to them about following up with a neurologist given that this is her second ER visit with headache and they were in
agreement. Regarding her speech�objectively it is normal she feels it is improved and I spoke to her son in private he says that she actually has noted some slowed speech chronically�there is a family history of Parkinson's and he is concerned and
wants to talk to her neurologist about the potential for this and I encouraged him to ensure follow-up with neurology.
Chronic conditions affecting care:
Pancreatic cancer
Acute Exacerbation and/or Progression of Chronic Illness:
Acutely hypertensive
Acute Exacerbation and/or Progression of Chronic Illness: HTN
*Pulse Oximetry
SaO2: 96
Oxygen Mode of Delivery: Room air
Patient hypoxic: no (96%)
*Critical Care Note
Total Time (30-74mins, 75-104mins- exclusive of procedures): Not Applicable
Data Reviewed
Review of Other/Old Records Reveals: Labs, Records and Radiology Studies
Source: patient, records and family
Further Testing Considered But Not Given:
Considered CT angiogram, considered lumbar puncture
Patient Management
Escalation/DeEscalation of care consider admission/obs:
Considered admission�symptoms improved, stable for discharge
ED Attending Note
-
Portions of this chart may have been created with voice recognition software.� Occasional wrong word or��sound alike� substitutions may have occurred due to the inherent limitations of voice recognition software.
Discharge Plan
Departure
Patient Disposition: Home (Routine Discharge)
Date of Disposition: 03/24/25
Time of Disposition: 23:00
Patient with high blood pressure during this ER visit?: Yes
Discharge Problem:
Headache
Instructions: Headache in adults - ED (DC)
Prescriptions:
No Action
atorvastatin 10 MG tablet
10 mg PO QPM
levothyroxine 100 MCG tablet
100 mcg PO SUMOTUWETHFR
metformin 500 mg Tablet
500 mg PO BID
cyanocobalamin (vitamin B-12) 1,000 mcg Tablet
1,000 mcg PO DAILY
losartan 25 mg Tablet
25 mg PO DAILY
famotidine [Pepcid] 20 mg tablet
20 mg PO DAILYPRN PRN (Reason: gerd)
levothyroxine [Synthroid] 50 mcg Tablet
50 mcg PO SA
Referrals:
Bettina Aleman CRNP [Family Provider, General] - Call in 1-3 days for appt
Juan Dotson MD [Active, Neurology] - Call in 1-3 days for appt
Activity Restrictions/Additional Instructions:
Thank you for visiting the Emergency Department at [facility].
1. Please schedule a follow up appointment as directed. Call first thing tomorrow morning to make an appointment.
2. If indicated, please take your medications as instructed and indicated on discharge paperwork.
3. If any of your symptoms do not improve, or persist, or become more severe within 6-12 hours, please return to the emergency department for further care.
4. Please return to the emergency department if you develop a headache, neck pain/stiffness, fever greater than 100.4F, chest pain, shortness of breath, persistent nausea, vomiting, slurred speech, difficulty walking, numbness/tingling, weakness,
signs of infection or any other symptoms that are worrisome to you.
Please call [phone] if you have any questions.
Interventions
Interventions:
*Risk Screen - Suicide Last Done: 03/24/25 19:17
*General Assessment Last Done: 03/24/25 21:16
*Neglect/Abuse Screening Last Done: 03/24/25 19:17
*ED COVID-19 Vaccine History Last Done: 03/24/25 21:16
*ED Influenza Vaccine History Last Done: 03/24/25 21:16
[facility] Fall Risk Assessment Tool Last Done: 03/24/25 21:15
*Nursing Disposition Last Done: 03/24/25 23:08
ED- Cardiac Assessment Last Done: 03/24/25 21:21
ED- Neurological Assessment Last Done: 03/24/25 21:21
ED- Pulmonary Assessment Last Done: 03/24/25 21:21
Discharge Date and Time
Discharge Date/Time: 03/24/25 23:18
Print Language: BENGALI
[2025-03-24] MEDS: NSS 500 IV (21:49)
[2025-03-24] MEDS: BENADRYL 25 MG IV (21:50)
[2025-03-24] MEDS: REGLAN 10 MG IV (21:50)
[2025-03-24] MEDS: TORADOL 15 MG IV (21:50)
[2025-03-24 22:00] VITALS: BP 135/103
== END 2025-03-24 23:18 | disposition home or self-care (01) ==
LOC: EMR 19:06
PROVIDERS: Emergency Medicine; EMERGENCY PHYSICIAN Emergency Medicine; FAMILY PHYSICIAN Nurse Practitioner
DX: R51.9 Headache, unspecified (principal); D64.9 Anemia, unspecified; C25.9 Malignant neoplasm of pancreas, unspecified; E11.9 Type 2 diabetes mellitus without complications; I10 Essential (primary) hypertension; E78.00 Pure hypercholesterolemia, unspecified; E03.9 Hypothyroidism, unspecified; Z79.84 Long term (current) use of oral hypoglycemic drugs
CPT/HCPCS: 99284; 96374; 96375 ×2; 96361; 70450; 80053; 85025; 93005